=== PATIENT | female | born 1980 | race Caucasian/White ===

== ENCOUNTER → 2017-01-09 | Outpatient (CLI) | payer MEDICAID | LOC: RAD 10:20 | PROVIDERS: ATTEND Pediatrics | DX: R59.0 Localized enlarged lymph nodes (principal) | CPT/HCPCS: 76642 ==

== ENCOUNTER → 2020-11-25 | Outpatient (CLI) | payer MEDICAID ==
--- NOTE | 2020-11-26 10:14 | Diagnostic Imaging Report ---
Indication: Routine screening. No prior mammograms are available for comparison. This is a baseline study. 2-D and 3-D bilateral screening mammography was performed with CAD. Scattered fibroglandular densities are identified bilaterally. No mass or malignant-appearing microcalcifications are seen. Axillae are unremarkable. IMPRESSION: BI-RADS Category 1 No mammographic features suspicious for malignancy are identified. ACR BI-RADS Category 1: Negative. Result letter will be mailed to the patient. Note: At least 10% of breast cancer is not imaged by mammography. Dictated by: Dictated on workstation # [id number]
== END ==
LOC: RAD 14:57
PROVIDERS: ATTEND Physician Assistant
DX: Z12.31 Encounter for screening mammogram for malignant neoplasm of breast (principal)
CPT/HCPCS: 77063; 77067